=== PATIENT | male | born 1990 | race Caucasian/White ===

== ENCOUNTER → 2023-02-08 | Outpatient (CLI) | payer OTHER ==
[~2023-02-08] MED LIST: CLON.2TP TP; CYCL10 PO; DIPATR PO; FENT75TP TOP; IBUP600 PO; LEVSOD125 PO; LEVSOD175; LEVSOD50; LORA1 PO; META800 PO; NAPR500 PO; OXYACE5T PO; OXYC10TA19 PO; OXYC30ER PO; PROACE100 PO; PROM25 PO; RXOXYACE PO
[2023-02-13 15:56] LABS: TESTOSTERONE, TOTAL MASS SPEC 370.8 ng/dL (300.0-1080.0)
== END ==
LOC: LAB SHORT 12:04 → LAB 12:04
PROVIDERS: Nurse Practitioner Family
DX: Z30.09 Encounter for other general counseling and advice on contraception (principal); E03.9 Hypothyroidism, unspecified; E29.1 Testicular hypofunction
CPT/HCPCS: 84402; 84403; 84443

== ENCOUNTER → 2023-06-11 | Outpatient (CLI) | payer OTHER ==
[2023-06-11 15:07] LABS: U Amphetamine Screen DETECTED; U Barbituate Screen Not Detected; U Benzodiazapine Screen Not Detected; U Buprenorphine Screen Not Detected; U Cannabinoids Screen Not Detected; U Cocaine Screen Not Detected; U Methadone Screen Not Detected; U Methamphetamine Screen Not Detected; U Opiates Screen DETECTED; U Oxycodone Screen Not Detected; U Phencyclidine Screen Not Detected
[2023-06-14 08:02] LABS: AMPHETAMINE,URN,QUANT 4686 ng/mL; MDA,URN,QUANT <200 ng/mL; MDEA,URN,QUANT <200 ng/mL; MDMA,URN,QUANT <200 ng/mL; METHAMPHETAMINE,URN,QUANT <200 ng/mL; PHENTERMINE,URN,QUANT <200 ng/mL
[2023-06-14 20:17] LABS: 6-ACETYLMORPHINE, URN, QUANT <10 ng/mL; CODEINE, URN, QUANT <20 ng/mL; HYDROCODONE, URN, QUANT <20 ng/mL; HYDROMORPHONE, URN, QUANT <20 ng/mL; MORPHINE, URN, QUANT <20 ng/mL; NORHYDROCODONE, URN, QUANT <20 ng/mL; NOROXYCODONE, URN, QUANT <20 ng/mL; NOROXYMORPHONE, URN, QUANT <20 ng/mL; OXYCODONE, URN, QUANT <20 ng/mL; OXYMORPHONE, URN, QUANT <20 ng/mL
== END | disposition home or self-care (01) ==
LOC: LAB SHORT 11:44 → LAB 11:44
PROVIDERS: Nurse Practitioner Family
DX: F90.8 Attention-deficit hyperactivity disorder, other type (principal)
CPT/HCPCS: G0480